=== PATIENT | female | born 2000 | race Caucasian/White ===

== ENCOUNTER 2019-02-14 07:34 | Outpatient (CLI) | payer MEDICAID ==
[~2019-02-14] VITALS: Ht 162.6 cm; Wt 123.6 kg
== END 2019-02-14 08:58 | disposition home or self-care (01) ==
LOC: LDOP 07:34
PROVIDERS: ATTEND Obstetrics & Gynecology Female Pelvic Medicine and Reconstructive Surgery
DX: O26.893 Other specified pregnancy related conditions, third trimester (principal); R10.9 Unspecified abdominal pain; Z3A.38 38 weeks gestation of pregnancy
CPT/HCPCS: 59025; 99201; G0463

== ENCOUNTER 2019-02-14 12:16 | Inpatient (IN) | payer BC, MEDICAID ==
[~2019-02-14] VITALS: Ht 160 cm; Wt 128.6 kg
[2019-02-19 07:40] VITALS: BP 104/66
== END 2019-02-19 13:06 | disposition home or self-care (01) | DRG 786 ==
LOC: LDOP 12:16 → LDIP 16:05 → 2NW 02-15 02:15
PROVIDERS: ADMIT Obstetrics & Gynecology Female Pelvic Medicine and Reconstructive Surgery; ATTEND Obstetrics & Gynecology Female Pelvic Medicine and Reconstructive Surgery
PROC: 10D00Z1 Extraction of Products of Conception, Low, Open Approach (ICD-10-PCS; principal; 2019-02-14)
DX: O76 Abnormality in fetal heart rate and rhythm complicating labor and delivery (principal); O41.1230 Chorioamnionitis, third trimester, not applicable or unspecified; O41.03X0 Oligohydramnios, third trimester, not applicable or unspecified; R71.0 Precipitous drop in hematocrit; Z37.0 Single live birth; Z3A.39 39 weeks gestation of pregnancy
CPT/HCPCS: 36415; J7121; 76815; 80170; 82565; 82803; 84112; 85025; 86850; 86900; 88307; 89060; G0378; J0290; J0690; J1100; J1170; J1885; J2274; J2405; J3010; J1580; J2370; J2590; J7120; Q0114